=== PATIENT | male | born 1940 | race Caucasian/White ===

== ENCOUNTER → 2019-08-20 | Outpatient (CLI) | payer MEDICARE ==
[2019-08-20 13:34] LABS: BASO % 1 % (0-3); EOS # 0.1 x10^3/uL (0.0-0.7); EOS % 2 % (0-3); HEMOGLOBIN 13.4 g/dL (13.0-17.5); LYMPH # 1.1 x10^3/uL (1.0-4.8); LYMPH % 21 % (24-48); MEAN CORPUSCULAR HEMOGLOBIN 30 pg (25-35); MEAN CORPUSCULAR HGB CONC 34 g/dL (31-37); MEAN CORPUSCULAR VOLUME 90 fL (79-100); MONO # 0.3 x10^3/uL (0.0-1.1); MONO % 7 % (0-9); NEUT # 3.6 x10^3/uL (1.8-7.7); NEUT % 70 % (31-73); PLATELET COUNT 247 x10^3/uL (140-400); RED BLOOD COUNT 4.45 x10^6/uL (4.30-5.70); RED CELL DISTRIBUTION WIDTH 13.8 % (11.5-14.5); WHITE BLOOD COUNT 5.2 x10^3/uL (4.0-11.0)
[2019-08-20 13:45] LABS: ALBUMIN 4.1 g/dL (3.4-5.0); ALBUMIN/GLOBULIN RATIO 1.3 (1.0-1.7); CALCIUM 9.4 mg/dL (8.5-10.1); CREATININE 0.8 mg/dL (0.7-1.3); GFR 93.5; POTASSIUM 4.4 mmol/L (3.5-5.1); TOTAL BILIRUBIN 0.4 mg/dL (0.2-1.0); TOTAL PROTEIN 7.2 g/dL (6.4-8.2)
== END | disposition home or self-care (01) ==
LOC: LAB 12:41
PROVIDERS: ATTEND Psychiatry & Neurology Neurology
DX: R51 Headache (principal); R26.81 Unsteadiness on feet; R41.89 Other symptoms and signs involving cognitive functions and awareness; Z79.899 Other long term (current) drug therapy
CPT/HCPCS: 36415; 80053; 82607; 84443; 85025

== ENCOUNTER → 2019-08-31 | Outpatient (CLI) | payer MEDICARE ==
[~2019-08-31] MED LIST: GADOTERATE 7.5 MMOL/15ML VIAL. IVP ONE
--- NOTE | 2019-08-31 12:56 | RAD ---
MRI of the Brain without and with Contrast 08/31/2019 Clinical History: Occipital headaches. Gait instability. Technique: Unenhanced T1-weighted sagittal and axial and FLAIR, T2-weighted, gradient echo and diffusion-weighted axial images of the brain were obtained. After the intravenous administration of 12 cc of DOTAREM, enhanced T1-weighted axial, sagittal and coronal images of the brain were obtained. Findings: Comparison is made to the patient's CT scan dated 12/02/2013. There is generalized parenchymal atrophy. Patchy and small scattered areas of abnormally increased signal intensity are seen within the periventricular and subcortical white matter of both cerebral hemispheres on the FLAIR and T2-weighted images consistent with areas of mild small vessel ischemic disease. No acute parenchymal abnormality is seen. No abnormal area of contrast enhancement is noted. No extra-axial fluid collection is seen. There is no MRI evidence of acute ischemia/infarction. Mild mucosal thickening is seen scattered throughout the paranasal sinuses. There are minimal bilateral mastoid effusions. Normal flow voids are seen within the major vascular structures surrounding the brain parenchyma. Impression: No acute parenchymal abnormality is seen. Electronically signed by: Thad Brink MD (08/31/2019 12:53 PM) [id number]
--- NOTE | 2019-08-31 13:04 | RAD ---
MRI of the cervical spine without contrast 08/31/20192017 CLINICAL HISTORY: Neck pain. Gait instability. TECHNIQUE: Unenhanced T1-weighted, T2-weighted and inversion recovery sagittal and gradient echo and T2-weighted axial images of the cervical spine were obtained. FINDINGS: Mild lateral curvature of the cervical spine is seen convex to the left. There is straightening of the normal cervical lordosis. Degenerative signal changes are seen involving all the disks of the cervical spine. Loss of height of the C5-6 disc is noted. Degenerative signal changes are seen within the marrow surrounding these discs. The cervical spinal cord is normal morphology, position, and signal characteristics. On the axial images throughout the cervical disc spaces there are mild generalized disc bulges. Degenerative changes are seen involving the uncovertebral and facet joints bilaterally. These findings when combined do not result in significant central spinal canal or neural foraminal stenosis at any level. IMPRESSION: Degenerative changes are seen throughout the cervical spine. These findings do not result in significant central spinal canal or neural foraminal stenosis at any level. Electronically signed by: Thad Brikn MD (08/31/2019 1:02 PM) [id number]
== END | disposition home or self-care (01) ==
LOC: MRI 09:45
PROVIDERS: ATTEND Psychiatry & Neurology Neurology
DX: J34.89 Other specified disorders of nose and nasal sinuses (principal); G31.89 Other specified degenerative diseases of nervous system; W19.XXXA Unspecified fall, initial encounter; Y93.89 Activity, other specified; Y92.89 Other specified places as the place of occurrence of the external cause; Y99.8 Other external cause status
CPT/HCPCS: 70553; 72141; A9575